=== PATIENT | female | born 1995 | race Caucasian/White ===

== ENCOUNTER 2022-05-07 09:01 | Outpatient (CLI) | payer OTHER, SELFPAY ==
[2022-05-07 09:34] LABS: Hemoglobin* 13.4 gm/dL (12.0-16.0)
[2022-05-07 14:23] LABS: Cholesterol* 162 mg/dL (90-199)
[2022-05-07 14:24] LABS: HDL Cholesterol* 68 mg/dL (>=50); LDL Cholesterol Calculated 86 mg/dL (<100); Triglycerides* 39 mg/dL (40-149)
== END 2022-05-07 09:02 | disposition home or self-care (01) ==
LOC: LONREF 09:02
PROVIDERS: PCP Family Medicine; Visit Provider Family Medicine
DX: F41.9 Anxiety disorder, unspecified (principal); Z13.0 Encounter for screening for diseases of the blood and blood-forming organs and certain disorders involving the immune mechanism; Z13.6 Encounter for screening for cardiovascular disorders
CPT/HCPCS: 80061; 85018